=== PATIENT | female | born 1965 | race Caucasian/White ===

== ENCOUNTER 2021-07-04 10:25 | Observation (INO) | payer OTHER ==
[~2021-07-04] VITALS: Ht 157.5 cm; Wt 117.5 kg
[~2021-07-04 10:25] MED LIST: ALBUTEROL SULFAT3 M3 IH; ALBUTEROL0.09 MG/A3 IH; ALBUTEROL0.83 MG/ML IH; ALBUTEROL1.25 MG/3 IH; ATROVENT I0.2 MG/1 M IH; BIAXIN 500MG T500 MG PO; CELEXA 20MG20 MG/TAB PO; CLARITIN5 MG/5 ML PO; DALIRESP500 MCG PO; DESYREL DIVIDO150 M1 PO; DEXILANT60 MG PO; DULERA1 AR1 IH; FOSAMAX 70MG TA70 MG PO; HYDROCODONE/APAP; IPRATROPIUM BROM3 M1 IH; LEVAQUIN 5500 MG/TA1 PO; LEVAQUIN 750MG750 M1 PO; LEVOTHYROXINE 50 MCG; LORTAB 7.5/5001 TAB PO; MACROBID 1100 MG/CAP PO; MAGNESIUM500 MG PO; MICROBID; NAPROSYN 2250 MG/TAB PO; NEXIUM 40MG40 MG PO; NORCO 325 MG-51 TAB PO; NORCO 325 MG-7.1 TAB PO; PERFOROMIS20 MCG/2 M IH; PREDNISONE10 MG PO; PREDNISONE20 MG PO; PRIL40 PO; PRILOSEC 20MG20 MG PO; PROTONIX 40MG T40 MG PO; PULMICORT0.5 MG/2 M IH; PULMICORT180 MCG/A1 IH; PULMICORT180 MCG/Ac IH; ROBITUSSIN DM PO; ROCEPHIN VIA1 G/VIAL IJ; RT ADVAIR 228 DISKUS IH; RT ADVAIR HFA 2312 G IH; SINGULAIR; SINGULAIR 110 MG/TAB PO; SOLU-MEDRO125 MG/21 IJ; SYNTHROID 0.0.025 MG PO; SYNTHROID0.075 MG/T PO; TAMIFLU 75MG75 MG PO; TESSALON PERLE200 MG PO; VENTOLIN0.09 MG IH; VFEND 200MG200 MG PO; VITAMIN D 50,1.25 MG PO; ZITHROMAX 250M250 MG PO; ZITHROMAX Z PA250 MG PO; ZITHROMAX500 M2 PO; ZOFRAN 4MG T4 MG/TAB PO; ZOVIRAX400 MG PO; [UNRECOGNIZED DRUG - OTHER]
[2021-07-04 11:26] LABS: BASO # 0.1 K/mm3 (0.0-0.2); BASO % 0.4 % (0.0-2.0); EOS # 0.2 K/mm3 (0.0-0.7); EOS % 1.2 % (0.0-4.0); GRAN # 9.1 K/mm3 (1.4-6.5); GRAN % 68.4 % (42.2-75.2); HEMATOCRIT 39.7 % (37.0-47.0); HEMOGLOBIN 12.5 g/dl (12.5-16.0); LYMPH # 3.1 K/mm3 (1.2-3.4); LYMPH % 23.4 % (20.0-51.0); MEAN CELL VOLUME 94 fl (80.0-100.0); MEAN CORPUSCULAR HEMOGLOBIN 30 pg (27-31); MEAN CORPUSCULAR HGB CONC 32 g/dl (33.0-37.0); MEAN PLATELET VOLUME 9.7 fl (7.4-10.4); MONO # 0.8 K/mm3 (0.1-0.6); MONO % 6.1 % (1.7-9.3); PLATELET COUNT 293 K/mm3 (130-400); RED BLOOD COUNT 4.24 M/mm3 (4.10-5.30); REDCELL DISTRIBUTION WIDTH-CV 13.9 % (11.5-14.5)
[2021-07-04] MEDS ORDERED: SYNTHROID0.088 MG/T PO (11:29)
[2021-07-04] MEDS ORDERED: PREDNISONE10 MG PO (11:30)
[2021-07-04] MEDS ORDERED: LASIX 20MG TABL20 MG PO (11:30)
[2021-07-04] MEDS ORDERED: CARDIZEM CD 24240 MG PO (11:32)
[2021-07-04] MEDS ORDERED: K-TAB20 PO (11:33)
[2021-07-04] MEDS ORDERED: ZESTRIL 10MG10 MG PO (11:34)
[2021-07-04] MEDS ORDERED: LOPRESSOR100 MG PO (11:34)
[2021-07-04 11:43] LABS: ALANINE AMINOTRANSFERASE 19 U/L (0-55); ALBUMIN 3.5 gm/dL (3.5-5.0); ALKALINE PHOSPHATASE 65 U/L (40-150); ANION GAP 10 mmol/L (7-16); AST,SGOT 18 U/L (5-34); BILIRUBIN,TOTAL 0.6 mg/dL (0.2-1.2); BLOOD UREA NITROGEN 8 mg/dL (10-20); CALCIUM 8.9 mg/dL (8.4-10.2); CARBON DIOXIDE 28 mmol/L (22-29); CHLORIDE 101 mmol/L (98-107); CREATININE, serum 0.72 mg/dL (0.57-1.11); GLUCOSE 91 mg/dL (70-99); POTASSIUM 3.5 mmol/L (3.5-4.5); SODIUM 139 mmol/L (136-145); TOTAL PROTEIN 6.9 gm/dL (6.2-8.1)
[2021-07-04 11:48] LABS: TROPONIN-I < 0.010 ng/mL (0.00-0.033)
[2021-07-04 16:02] VITALS: BP 148/84; PULSE 102; TEMP 98.9
[2021-07-04] MEDS ORDERED: ASPIRIN 81M81 MG/TA2 PO (16:32)
--- NOTE | 2021-07-04 16:40 | NUR ---
PT ADMITTED TO THE UNIT. ADMISSION INTAKE AND ASSESSMENT COMPLETED. ORIENTED PT TO ROOM. MED REC COMPLETED. CONTINUING TO MONITOR.
[2021-07-04 20:57] VITALS: BP 140/81; PULSE 96; TEMP 98.3
[2021-07-05 00:16] VITALS: BP 123/68; PULSE 73; TEMP 97.5
[2021-07-05 04:06] VITALS: BP 109/54; PULSE 72; TEMP 98.5
--- NOTE | 2021-07-05 06:28 | NUR ---
Resting quietly, patient with audible expiratory wheeze noted, O2@1L per nc, independently gets up to bsc, telemetry in use, call toth w/i reach.
[2021-07-05 06:47] LABS: BASO % 0.1 % (0.0-2.0); GRAN % 84.5 % (42.2-75.2); HEMATOCRIT 41.8 % (37.0-47.0); HEMOGLOBIN 13.2 g/dl (12.5-16.0); LYMPH % 12.8 % (20.0-51.0); MEAN CELL VOLUME 94 fl (80.0-100.0); MEAN CORPUSCULAR HEMOGLOBIN 30 pg (27-31); MEAN CORPUSCULAR HGB CONC 32 g/dl (33.0-37.0); MEAN PLATELET VOLUME 9.9 fl (7.4-10.4); MONO # 0.3 K/mm3 (0.1-0.6); MONO % 1.9 % (1.7-9.3); PLATELET COUNT 336 K/mm3 (130-400); RED BLOOD COUNT 4.45 M/mm3 (4.10-5.30); REDCELL DISTRIBUTION WIDTH-CV 13.5 % (11.5-14.5)
[2021-07-05 06:57] LABS: ALBUMIN 3.3 gm/dL (3.5-5.0); CALCIUM 9.1 mg/dL (8.4-10.2); CREATININE, serum 0.7 mg/dL (0.57-1.11); MAGNESIUM 2.2 mg/dL (1.6-2.6); PHOSPHOROUS 4.5 mg/dL (2.3-4.7); POTASSIUM 3.9 mmol/L (3.5-4.5)
[2021-07-05 08:07] VITALS: BP 106/66; PULSE 78; TEMP 97.8
--- NOTE | 2021-07-05 09:27 | NUR ---
PT RESTING IN BED. MORNING MEDICATIONS GIVEN. SHIFT ASSESSMENT COMPLETED. REPORTS AND HEADACHE AND PAIN IN THE BACK/CHEST/RIBS. DENIES ANY NEEDS AT THIS TIME. PORT FLUSHES BUT DOES NOT HAVE BLOOD RETURN, PT REPORTS IT CAN BE POSITIONAL. CONTINUING TO MONITOR.
--- NOTE | 2021-07-05 11:34 | NUR ---
First visit from the leasing consultant. No needs right now.
[2021-07-05 12:02] VITALS: BP 131/70; PULSE 70; TEMP 98.3
--- NOTE | 2021-07-05 13:02 | NUR ---
Boiler Coverer Helper and SW student met with patient to discuss discharge planning. 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 Patient sees Dr. Vicente for primary care and obtains medications from [facility] pharmacy with no difficulties. Patient has a walker at home and reports she has a sleep study scheduled to evaluate for night time oxygen. Patient is independent with ADLS and plans to return home upon discharge. Patient states she has designated her niece, Isamar Glasgow as DPOA-HC. Patient reports her friends, Isamar and Shreya are listed as alternates. Patient advised she didn't want to designate her family because she doesn't want them to have to make decisions for her. Discharge Plan: Home
[2021-07-05 16:20] VITALS: BP 112/58; PULSE 64; TEMP 98.3
[2021-07-05 21:16] VITALS: BP 112/67; PULSE 63; TEMP 98.2
[2021-07-06 00:20] VITALS: BP 106/55; PULSE 60; TEMP 97.9
[2021-07-06 04:55] VITALS: BP 104/47; PULSE 58; TEMP 98
--- NOTE | 2021-07-06 05:50 | NUR ---
Patient R port no draw back or flush, deaccessed, attempted reaccess x 2 w/o success, Mirror Inspector attempted x 1 w/o success. Patient tolerated well.
[2021-07-06 06:57] LABS: BASO % 0.2 % (0.0-2.0); GRAN # 18.5 K/mm3 (1.4-6.5); GRAN % 89.4 % (42.2-75.2); HEMOGLOBIN 12.8 g/dl (12.5-16.0); LYMPH # 1.4 K/mm3 (1.2-3.4); MEAN CELL VOLUME 93 fl (80.0-100.0); MEAN CORPUSCULAR HEMOGLOBIN 30 pg (27-31); MEAN CORPUSCULAR HGB CONC 32 g/dl (33.0-37.0); MEAN PLATELET VOLUME 10.5 fl (7.4-10.4); MONO # 0.5 K/mm3 (0.1-0.6); MONO % 2.4 % (1.7-9.3); PLATELET COUNT 361 K/mm3 (130-400); RED BLOOD COUNT 4.32 M/mm3 (4.10-5.30); REDCELL DISTRIBUTION WIDTH-CV 13.7 % (11.5-14.5)
--- NOTE | 2021-07-06 07:15 | NUR ---
CRITICAL WBC CALLED TO [facility].
[2021-07-06 07:18] LABS: ALBUMIN 3.2 gm/dL (3.5-5.0); CALCIUM 8.9 mg/dL (8.4-10.2); CREATININE, serum 0.74 mg/dL (0.57-1.11); MAGNESIUM 2.3 mg/dL (1.6-2.6); PHOSPHOROUS 3.8 mg/dL (2.3-4.7); POTASSIUM 3.9 mmol/L (3.5-4.5)
[2021-07-06 08:36] VITALS: BP 117/58; PULSE 74; TEMP 97.7
--- NOTE | 2021-07-06 09:22 | NUR ---
PT RESTING IN BED. MORNING MEDICATIONS GIVEN. SHIFT ASSESSMENT COMPLETED. PT CURRENTLY ON 1L OXYGEN VIA NC. DENIES ANY NEEDS AT THIS TIME. WILL CONTINUE TO MONITOR.
[2021-07-06] MEDS ORDERED: PROVENTIL0.09 MG/A1 IH (09:39)
[2021-07-06] MEDS ORDERED: RT ADVAIR 228 DISKUS IH (09:39)
[2021-07-06] MEDS ORDERED: ALBUTEROL1.25 MG/3 IH (09:44)
[2021-07-06] MEDS ORDERED: DOXYCYCLINE 10100 MG PO (10:41)
[2021-07-06] MEDS ORDERED: TESSALON P100 MG/CAP PO (10:42)
[2021-07-06] MEDS ORDERED: PREDNISONE20 MG PO (10:44)
--- NOTE | 2021-07-06 11:06 | NUR ---
DISCHARGE INFORMATION GIVEN. IV D/C. PT PACKING UP AND WAITING FOR RIDE.
== END 2021-07-06 12:12 | disposition home or self-care (01) ==
LOC: COL.ER 10:25 → MEDICAL 15:08
PROVIDERS: Nurse Practitioner; ADMIT Internal Medicine
DX: J96.21 Acute and chronic respiratory failure with hypoxia (principal); J44.1 Chronic obstructive pulmonary disease with (acute) exacerbation; I11.0 Hypertensive heart disease with heart failure; I50.9 Heart failure, unspecified; E03.9 Hypothyroidism, unspecified; E66.01 Morbid (severe) obesity due to excess calories; I48.91 Unspecified atrial fibrillation; K21.9 Gastro-esophageal reflux disease without esophagitis; F41.9 Anxiety disorder, unspecified; F32.A Depression, unspecified; R06.83 Snoring; Z77.22 Contact with and (suspected) exposure to environmental tobacco smoke (acute) (chronic); Z79.890 Hormone replacement therapy; Z79.899 Other long term (current) drug therapy; Z79.52 Long term (current) use of systemic steroids; Z95.828 Presence of other vascular implants and grafts; Z79.82 Long term (current) use of aspirin; Z79.51 Long term (current) use of inhaled steroids
CPT/HCPCS: A9284; G0378; J1644; J2920; J2930; J7512; Q9967

== ENCOUNTER 2024-03-06 07:36 | Day surgery (SDC) | payer BC, OTHER ==
[~2024-03-06] VITALS: Ht 157.5 cm; Wt 116.4 kg
[~2024-03-06 07:36] MED LIST changes: +ASPIRIN 81M81 MG/TA2 PO; +CARDIZEM CD 24240 MG PO; +DOXYCYCLINE 10100 MG PO; +K-TAB20 PO; +LASIX 20MG TABL20 MG PO; +LOPRESSOR100 MG PO; +LR 1,000 ML IV SCH; +Ondansetron 4 MG/2 ML VIAL IV PRN; +PROVENTIL0.09 MG/A1 IH; +SYNTHROID0.088 MG/T PO; +TESSALON P100 MG/CAP PO; +ZESTRIL 10MG10 MG PO
[2024-03-06] MEDS ORDERED: SINGULAIR 110 MG/TAB PO (08:19)
[2024-03-06] MEDS ORDERED: PRIL40 PO (08:20)
[2024-03-06] MEDS ORDERED: K-DUR20 MEQ PO (08:21)
[2024-03-06] MEDS ORDERED: TIROSINT112 MC1 PO (08:22)
[2024-03-06] MEDS ORDERED: CELEXA40 MG PO (08:22)
[2024-03-06] MEDS ORDERED: TIAZAC240 MG PO (08:23)
[2024-03-06] MEDS ORDERED: PREDNISONE20 MG PO (08:23)
[2024-03-06 08:24] VITALS: BP 132/62; PULSE 59; TEMP 97
[2024-03-06] MEDS ORDERED: ZOLOFT 25MG25 MG PO (08:24)
[2024-03-06] MEDS ORDERED: AMBIEN 10MG10 MG PO (08:24)
[2024-03-06] MEDS ORDERED: Lidocaine PF 2% (20 MG/ML) 5 ML VIAL ONE (08:54)
[2024-03-06] MEDS ORDERED: fentaNYL 50 MCG/ML 2 ML VIAL ONE (08:54)
[2024-03-06 09:45] VITALS: BP 110/71; PULSE 68; TEMP 97.5
[2024-03-06 10:00] VITALS: BP 123/78; PULSE 62
[2024-03-06 10:15] VITALS: BP 120/80; PULSE 72
--- NOTE | 2024-03-06 10:47 | NUR ---
0945 RETURNS TO ROOM 3 PER CART. AWAKE, ALERT. RESP UNLABORED. AMBULATES TO RECLINER WITH STANDBY ASSIST. DENIES NAUSEA OR ABD PAIN. VITAL SIGNS OBTAINED. CALL LIGHT AT SIDE. 1000 TOLERATES PO SODA AND MUFFIN WITHOUT NAUSEA 1015 DISCHARGE INSTRUCTIONS REVIEWED. PATIENT VERBALIZES UNDERSTANDING. COPY PROVIDED IN DISCHARGE FOLDER 1030 AMBULATES TO BATHROOM WITH STANDBY ASSIST, THEN BACK TO RECLINER. DRESSES SELF. WAITING FOR VISIT FROM DR Bonilla0 DR VICTOR HERE TO SEE PATIENT
== END 2024-03-06 10:47 | disposition home or self-care (01) ==
LOC: SDCO 07:36
DX: Z12.11 Encounter for screening for malignant neoplasm of colon (principal); D12.2 Benign neoplasm of ascending colon; D12.4 Benign neoplasm of descending colon; D12.5 Benign neoplasm of sigmoid colon; D12.8 Benign neoplasm of rectum; J44.1 Chronic obstructive pulmonary disease with (acute) exacerbation; Z91.199 Patient's noncompliance with other medical treatment and regimen due to unspecified reason; Z86.73 Personal history of transient ischemic attack (TIA), and cerebral infarction without residual deficits
CPT/HCPCS: J2704; J3010; J7120